=== PATIENT | male | born 1955 | race Hispanic/Latino ===

== ENCOUNTER 2022-07-01 13:03 | Emergency (ER) | payer MEDICARE, OTHER ==
[~2022-07-01] VITALS: Ht 175.3 cm; Wt 114.8 kg
[~2022-07-01 13:03] MED LIST: ASPIR 8181 MG PO; ATORVASTATIN CA20 MG PO; CYCLOBENZAPRINE10 MG PO; ENALAPRIL MALEA20 MG PO; FLEXERIL PO; HCTZ PO; HYDROCHLOROTHIA25 MG PO; ISOSORBIDE MONO20 MG PO; METOPROLOL TART50 MG PO; MULTI-VITAMIN1 EACH PO; NITROGLYCERIN0.4 MG SL; PANTOPRAZOLE SO40 MG PO; PLAVIX75 MG PO; TRAMADOL HCL100 MG PO
[2022-07-01] MEDS ORDERED: SODIUM CHLORIDE FLUSH 10 ML SYR IV PRN (13:30)
[2022-07-01] MEDS ORDERED: ACETAMINOPHEN 325 MG TAB PO ONE (13:30)
[2022-07-01] MEDS ORDERED: KETOROLAC TROMETHAMINE 30 MG/ML VIAL IV ONE (13:30)
[2022-07-01 13:41] LABS: BASOPHILS # (AUTO) 0.1 (0.0-0.1); BASOPHILS % 0.6 % (0.0-1.0); EOSINOPHILS # (AUTO) 0.1 (0.0-0.4); HEMATOCRIT 44.5 % (38.2-49.6); HEMOGLOBIN 14.7 g/dL (14.0-18.0); LYMPHOCYTES # (AUTO) 1.4 (1.0-3.2); LYMPHOCYTES % 16.8 % (18.0-39.1); MEAN CORPUSCULAR HEMOGLOBIN 30.7 pg (28-32); MEAN CORPUSCULAR VOLUME 92.9 fL (81-99); MONOCYTES # (AUTO) 0.7 (0.2-0.8); MONOCYTES % 8.2 % (4.4-11.3); NEUTROPHILS # (AUTO) 6.1 (2.1-6.9); PLATELET COUNT 260 x10e3/uL (140-360); RED BLOOD COUNT 4.79 x10e6/uL (4.3-5.7); RED CELL DISTRIBUTION WIDTH 11.8 % (11.7-14.4)
[2022-07-01 14:01] LABS: ALBUMIN 4.1 g/dL (3.5-5.0); ALBUMIN/GLOBULIN RATIO 1.3 (0.8-2.0); ANION GAP 15.9 mmol/L (8-16); CALCIUM 9.1 mg/dL (8.4-10.2); CREATININE, SERUM 1.49 mg/dL (0.72-1.25); POTASSIUM 3.9 mmol/L (3.5-5.1)
[2022-07-01] MEDS ORDERED: BENZONATATE200 MG PO (15:42)
[2022-07-01] MEDS ORDERED: DICYCLOMINE HCL20 MG PO (15:42)
[2022-07-01 16:07] VITALS: BP 130/79
== END 2022-07-01 16:01 | disposition home or self-care (01) ==
LOC: ER 13:06
DX: R10.11 Right upper quadrant pain (principal); R05.9 Cough, unspecified
CPT/HCPCS: 36415; 76705; 80053; 83690; 85025; 99284; J1885